=== PATIENT | male | born 1980 | race Caucasian/White ===

== ENCOUNTER 2017-02-18 14:20 | Emergency (ER) | payer OTHER ==
[~2017-02-18] VITALS: Ht 172.7 cm; Wt 79.4 kg
--- NOTE | ~2017-02-18 | CR151 ---
[facility] A Service of [facility] & [facility] RADIOLOGY TEXT RESULTS PATIENT: SUREKHA WATKINS LOCATION: [facility] : 78 UNIT #: [id number] AGE: [address]: Anny Weber APRN SEX: M ORDER DR: [id number] [facility] [address]. [place], [place] [address] [id number] MR#: [id number] Acc #: [id number] NAME: SUREKHA WATKINS. : 1980 SEX: M STUDY DATE/TIME: 02/18/2017 16:24 UNIT: [facility] ROOM: STUDY DESCRIPTION: CR Hip Min 2 Views Rt Attending Physician: Anny Weber A.P.R.N. Ordering Physician: Ed Rikki Rosen M.D. Primary Care Physician: No Primary Care Physician MEDICAL IMAGING REPORT This report is preliminary unless electronic signature is present EXAM Right hip series 02/18/2017 HISTORY Trauma. Pain. Fall 02/17/2017. FINDINGS AP radiograph of pelvis presented with frog-leg view of the right hip. Bony ring of pelvis is intact. Lower lumbar spine shows no acute-appearing abnormality. 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 Joint space narrowing bilaterally, right greater than left. There is some sclerotic change along the articular surface of the bilateral hips. There are articular surface osteophyte formations more pronounced on the right. There is what appears to be a chronic soft tissue calcification along the superolateral right femoral head. There is no indication of proximal femoral fracture. Periarticular soft tissues show no acute abnormality. The visualized bowel gas pattern is normal. Dictated by... Jorge Hairston M.D. THIS IS AN ELECTRONICALLY VERIFIED REPORT Jorge Hairston M.D. at 02/21/2017 10:33 AM NAVJOT/garry TD: 02/19/2017 09:29 JOB #: [id number] MEDICAL IMAGING REPORT Page 1 of 1 COPY
--- NOTE | ~2017-02-18 | CR181 ---
[facility] A Service of [facility] RADIOLOGY TEXT RESULTS PATIENT: SUREKHA WATKINS LOCATION: [facility] : 78 UNIT #: [id number] AGE: [address]: Anny Weber APRN SEX: M ORDER DR: [id number] [facility] [address] [place], [place] [address] [id number] E MR#: [id number] Acc #: [id number] NAME: SUREKHA WATKINS. : 1980 SEX: M STUDY DATE/TIME: 02/18/2017 11:03 UNIT: [place] ROOM: STUDY DESCRIPTION: CR Lumbar Spine 2 or 3 Views Attending Physician: Anny Weber A.P.R.N. Ordering Physician: Ed Doctor [id number] [facility] Primary Care Physician: Primary Care Physician No MEDICAL IMAGING REPORT This report is preliminary unless electronic signature is present EXAM Lumbar spine 02/18/2017. HISTORY Trauma. Status post fall. Pain. Symptoms since 02/17/2017. FINDINGS AP and 2 lateral views of the lumbar spine are presented. No prior dedicated lumbar imaging for comparison. There is a mild and incompletely visualized levoscoliosis lower thoracic spine and upper to mid lumbar spine. This could be in part positional in nature. Alignment in lateral projection is normal. There is mild anterior wedging of the L1 vertebral body with no indication of trabecular impaction or cortical irregularity. Degenerative changes in the flanking T12-L1 and L1-L2 intervertebral disc spaces. I strongly favor that the L1 mild anterior wedging is chronic in time course. Correlate with any point tenderness over the L1 level. Other vertebral body heights are normal. There is mild disc space narrowing L4-5, L5-S1. Facet joint relationships are normal. The visualized lower thoracic spine shows mild intervertebral disc space degenerative change. The visualized ribs appear intact. Visualized bony pelvis unremarkable. Bowel gas pattern normal in visualized extent. Lung bases grossly clear. Dictated by... Jorge Hairston M.D. [facility] A Service of [facility] RADIOLOGY TEXT RESULTS PATIENT: SUREKHA WATKINS LOCATION: [facility] : 78 UNIT #: [id number] AGE: [address]: Anny Weber APRN SEX: M ORDER DR: THIS IS AN ELECTRONICALLY VERIFIED REPORT Jorge Hairston M.D. at 03/02/2017 11:38 PM Carina TD: 02/19/2017 06:22 JOB #: [id number] MEDICAL IMAGING REPORT Page 1 of 1 COPY
[~2017-02-18 14:20] MED LIST: AUGMENTIN875 MG PO; BACTRIM DS TABL1 TAB PO; CIPRO PO; KEFLEX PO; LORTAB 7.5-3251 EACH PO; NO MEDICATIONS; PERCOCET5/325 PO; TYLOX 5/500 CAP1 CAP PO; VICODIN 5/500 T1 TAB PO; ZITHROMAX PO
== END 2017-02-18 17:49 | disposition home or self-care (01) ==
LOC: CFTX 14:20 → CED 14:20 → CFTX 17:01
DX: S70.01XA Contusion of right hip, initial encounter (principal); F17.210 Nicotine dependence, cigarettes, uncomplicated; Z79.899 Other long term (current) drug therapy; W01.0XXA Fall on same level from slipping, tripping and stumbling without subsequent striking against object, initial encounter; Y92.69 Other specified industrial and construction area as the place of occurrence of the external cause
CPT/HCPCS: 72100; 73502; 99283